=== PATIENT | female | born 1995 | race African-American/Black ===

== ENCOUNTER 2017-11-24 17:35 | Emergency (ER) | payer SELFPAY ==
[2017-11-24 18:12] LABS: #Basophils 0.1 thou/uL (0.0-0.2); #Eosinphils 0.2 thou/uL (0.0-0.7); #Monocytes 0.4 thou/uL (0.11-0.59); %Basophils 1.4 % (0.0-1.0); %Eosinophils 4.1 % (0.0-10.0); %Lymphocytes 35.2 % (21.0-51.0); %Monocytes 7.5 % (0.0-10.0); %Neutrophils 51.8 % (42.0-75.0); Hemoglobin 11.5 g/dL (12.0-16.0); Mean Corpuscular HGB CONC 35.9 g/dL (32.0-36.0); Mean Corpuscular Hemoglobin 28.7 pg (27.0-31.0); Mean Corpuscular Volume 79.8 fL (78.0-98.0); Mean Platelet Volume 8.3 fL (7.4-10.4); Platelet Count 289 thou/uL (130-400); RBC Distribution Width 13.8 % (11.5-14.5); Red Blood Cell (RBC) Count 4.01 mill/uL (4.20-5.40); White Blood Cell (WBC) Count 5.8 thou/uL (4.8-10.8)
[2017-11-24 18:35] LABS: ALT (SGPT) 748 U/L (8-55); AST (SGOT) 421 U/L (5-34); Albumin 4.5 g/dL (3.5-5.0); Alkaline Phosphatase 232 U/L (40-150); Anion Gap 13 mmol/L (10-20); BUN (Urea Nitrogen) 9 mg/dL (7.0-18.7); Bilirubin, Total 5.1 mg/dL (0.2-1.2); Calc. Creatinine Clearance 0 mL/min (70-130); Calcium 9.6 mg/dL (7.8-10.44); Carbon Dioxide 26 mmol/L (22-29); Chloride 102 mmol/L (98-107); Estimated GFR-MDRD Greater than 90; Globulin 3.5 g/dL (2.4-3.5); Glucose 85 mg/dL (70-105); Lipase 21 U/L (8-78); Potassium 3.2 mmol/L (3.5-5.1); Sodium 138 mmol/L (136-145)
[2017-11-24 19:27] LABS: Bilirubin Large (Negative); Blood, Urine Negative (Negative); Glucose, Urine (Dipstick) Negative (Negative); Leukocyte Trace (Negative); pH, Urine 6.5 (5.0-9.0)
[2017-11-24 19:28] LABS: Clarity Clear (Clear)
[2017-11-24 19:29] LABS: Pregnancy Test - Urine (BHCG) Negative (Negative); Pregu Control Background? CLEAR/WHITE (CLR/WHITE); Pregu Control Bar Appear? YES (CONTROL BAR); Specific Gravity 1.035 (1.002-1.036)
[2017-11-24 19:30] LABS: Nitrite Unable to Interpret (Negative); Specific Gravity, Urine 1.035 (1.002-1.036)
[2017-11-24 19:31] LABS: Protein, Urine (Dipstick) Trace mg/dL (Neg-Trace)
[2017-11-24 19:41] LABS: Bacteria/HPF None Seen HPF (None Seen); RBC/HPF 0-3 HPF (0-3); Squamous Epithelial 21-50 HPF (0-3)
[2017-11-24 19:42] LABS: Hyaline Casts/LPF 0-3 HYALINE CAST LPF (0-3 Hyaline)
== END 2017-11-24 20:50 | disposition left against medical advice (07) ==
LOC: ERS 17:35
DX: Z53.21 Procedure and treatment not carried out due to patient leaving prior to being seen by health care provider (principal)
CPT/HCPCS: 36415; 80053; 81003; 81015; 81025; 83690; 85025